=== PATIENT | female | born 1950 | race African-American/Black ===

== ENCOUNTER 2019-08-25 17:23 | Inpatient (IN) ==
[2019-08-25] MEDS ORDERED: ZOFRAN IV ONE (17:54)
[2019-08-25] MEDS ORDERED: MORPHINE IV ONE (17:54)
--- NOTE | 2019-08-25 17:59 | PROVIDER DOCUMENTATION ---
HPI-Abdominal Pain/GI Problem - General Chief Complaint: Abdominal Pain Stated Complaint: COLON PAIN Time Seen by Provider: 08/25/19 17:45 Source: patient Allergies/Adverse Reactions: Patient Allergies Allergy/AdvReac Type Severity Reaction Status Date / Time No Known Allergies Allergy Verified 11/10/12 15:07 Home Medications: Home Medication List Medication Instructions Recorded Confirmed Last Taken Type Amlodipine [Norvasc] 10 mg PO DAILY 11/10/12 11/10/12 11/10/12 08:00 History Aspirin 81 mg PO DAILY 11/10/12 11/10/12 11/10/12 08:00 History Estradiol 2 mg PO QHS 11/10/12 11/10/12 11/09/12 21:00 History Levothyroxine [Synthroid] 75 microgm PO DAILY 11/10/12 11/10/12 11/10/12 08:00 History Lisinopril [Zestril] 40 mg PO DAILY 11/10/12 11/10/12 11/09/12 21:00 History Oxybutynin [Ditropan] 5 mg PO BID 11/10/12 11/10/12 11/10/12 08:00 History PRAVAstatin [Pravachol] 40 mg PO QHS 11/10/12 11/10/12 11/09/12 21:00 History - History of Present Illness-ABD Nature of Presenting Problems: 69 YOF PRESENTS WITH NAUSEA, LOWER ABDOMINAL PAIN THAT BEGAN YESTERDAY. SHE REPORTS THE PAIN IS SEVERE. LAST BM WAS YESTERDAY. DENIES FEVER, CHILLS, VOMITING, CP, SOB. Abdominal Pain Onset Location: reports: RLQ, LLQ Pain Radiation: reports: no radiation Quality of Pain: reports: aching Severity in ED: reports: severe Onset/Duration: reports: last night Timing: reports: still present Activities at Onset: reports: none Exposure to sick contacts?: No Modifying Factors: improves with: nothing Associated Symptoms: reports: nausea Last BM: 24 hours ago Dark Stools Present?: reports: none noticed Rectal Bleeding: reports: none Rectal Pain: reports: none Emesis Description: reports: none Bruising or Bleeding Gums?: No Similar Symptoms Previously?: No Recently seen or treated by another doctor?: No Review of Systems - Adult - REVIEW OF SYSTEMS - ADULT Constitutional: reports: no symptoms reported. denies: see HPI, chills, fever, fatique, night sweats, weight gain, weight loss, other Eyes: reports: no symptoms reported. denies: see HPI, discharge, dry eyes, decreased vision, blurred vision, double vision, eye pain, redness, other Ears, Nose, Mouth & Throat: reports: no symptoms reported. denies: see HPI, ear discharge, ear pain, hearing loss, tinnitus, epistaxis, sinus problem, nose pain, loose teeth, mouth/dental pain, mouth swelling, hoarseness, throat pain, throat swelling, other Cardiovascular: reports: no symptoms reported. denies: see HPI, chest pain, edema, heart murmur, irregular heart rate, orthopnea, palpitations, poor circulation, PND, syncope, other Respiratory: reports: no symptoms reported. denies: see HPI, chronic cough, cough, dyspnea on exertion, excessive sputum production, hemoptysis, pleurisy, shortness of breath, wheezing, other Gastrointestinal: reports: see HPI, abdominal pain, nausea. denies: no symptoms reported, hematemesis, constipation, diarrhea, difficulty swallowing, frequent heartburn, poor appetite, rectal bleeding, vomiting, other Genitourinary: reports: no symptoms reported. denies: see HPI, dysuria, discharge, frequency, flank pain, frequent UTI's, hematuria, hesitency, incontinence, urinary retention, urgency, other Musculoskeletal: reports: no symptoms reported Integumentary: reports: no symptoms reported. denies: see HPI, hives, hair loss, itching, mole changes, nail changes, rash, skin sores/ulcer, skin thickening, other Neurological: reports: no symptoms reported. denies: see HPI, ataxia, dizziness/vertigo, headache/migraines, loss of balance, numbness, paresthesia, seizure, slurred speech, syncope, tremors, other Psychiatric: reports: no symptoms reported. denies: see HPI, anxiety, anti- depressant use, alcohol/drug dependence, depression, emotional problems, insomnia, panic attacks, suicidal thoughts, other Endocrine: reports: no symptoms reported. denies: see HPI, change in skin pigment, excessive sweating, goiter, cold intolerance, heat intolerance, increased hunger, increased thirst, polyuria, other Hematologic/Lymphatic: reports: no symptoms reported. denies: see HPI, blood clots, easy bruising, low blood count, lymphedema, prolonged bleeding, swollen lymph nodes, transfusions, other Allergic/Immunologic: reports: no symptoms reported. denies: see HPI, allergic reactions, allergic rhinitis, asthma, eczema, food allergy, frequent infections, hay fever, hives, positive PPD, urticaria, other Past History - Adult - PAST MEDICAL HISTORY-ADULT Review of Records: reports: Nursing Assessment Review, Social history reviewed & non-contributory. Physical Exam-General - PHYSICAL EXAM-ADULT Initial Vital Signs Reviewed: Yes - CONSTITUTIONAL General Appearance: alert, no apparent distress. negative: appears well (KATHY EARS IN PAIN) - EYES Eyes: PERRL/EOMI, pink conjunctivae - HEAD, EARS, NOSE, MOUTH & THROAT HENMT: normocephalic/atraumatic, moist mucous membranes, normal ENT inspection - NECK Neck: non-tender, full range of motion, supple - RESPIRATORY Respiratory: chest non-tender, lungs clear, normal breath sounds, no pleuratic chest pain, no respiratory distress, no accessory muscle use - CARDIOVASCULAR Cardiovascular: normal peripheral pulses, regular rate, rhythm, no edema, no gallop, no JVD, no murmur - GASTROINTESTINAL (ABDOMEN) Abdominal Exam: normal bowel sounds, soft, tenderness - LYMPHATIC Lymphatic: no adenopathy - MUSCULOSKELETAL Back Exam: normal inspection, no CVA tenderness, no vertebral tenderness Extremity: normal range of motion, non-tender, normal gait Peripheral Pulses: radial (R): 2+, radial (L): 2+ - SKIN Integumentary: normal color, normal turgor, warm/dry - NEUROLOGIC Neurologic: grossly normal - PSYCHIATRIC Psych/Mental Status: normal mood/affect, oriented x 3 Progress - PLAN OF CARE/RESULTS Progress/Plan/Lab Results: Vital Signs - 8 hr 08/25/19 17:31 Temperature 98.2 F Pulse Rate 101 H Respiratory Rate 20 Blood Pressure 179/80 O2 Sat by Pulse Oximetry 95 Orders Category Date Time Status Saline Loc NOW Care 08/25/19 17:[address] ABD/PELVIS W/IV CONT ONLY [CT] Stat Exams 08/25/19 17:53 Ordered AMYLASE [CHEM] Stat Lab 08/25/19 17:35 Ordered CBC WITH DIFF [HEME] Stat Lab 08/25/19 17:35 Ordered COMPREHENSIVE METABOLIC PANEL [CHEM] Stat Lab 08/25/19 17:35 Uncollected LIPASE [CHEM] Stat Lab 08/25/19 17:35 Uncollected URINALYSIS W/POSS RFLX CULT [URINALYSIS] Stat Lab 08/25/19 17:35 Uncollected Morphine Med 08/25/19 17:54 Once 4 mg IV NOW ONE Ondansetron [Zofran] Med 08/25/19 17:54 Once 4 mg IV NOW ONE Result Diagrams: 08/25/19 18:05 08/25/19 18:05 - CT/MRI 1 CT Study: Abdomen, Pelvis Impression: See EMR Report (EXAM: CT ABD/PELVIS W/IV CONT ONLY HISTORY: abd pain TECHNIQUE: CT abdomen and pelvis with intravenous contrast COMPARISON: 08/18/2018 FINDINGS: There is fatty infiltration of the liver. No splenomegaly. No calcified gallstones or adjacent inflammation. Normal pancreas, adrenal glands, and kidneys. No aortic aneurysm. Moderate atherosclerosis. There are multiple distal colonic diverticula and there is thickening to the wall of the distal descending colon with adjacent inflammatory changes. No free air or abscess. The urinary bladder is distended and is normal. The uterus has been removed. No pelvic mass. IMPRESSION: 1.Descending colon diverticulitis 2.Fatty infiltration of the liver This exam was performed using automated exposure control, adjustment of mA or kV according to patient size, and/or use of iterative reconstruction technique. Electronically signed by Taurus Moura 08/25/2019 8:02 PM 08/25/192001 Interpreting Physician: Taurus Moura MD Dictated Date/Time: 08/25/191999 cc: Mary Black; Kim Hancock MD) - CONSULTS/PCP/HOSPITALIST Notification #1 *Consult/PCP/Hospitalist*: DR GRIDER Time Discussed: 21:02 Reason/Comments: GIVE ZOSYN NOW Consult Disposition: Admit Departure - Departure Date of Disposition Decision: 08/25/19 Time of Disposition Decision: 21:02 DIAGNOSIS: Diverticulitis Disposition: ADMITTED INPATIENT 09 Certified Medical Emergency: Emergent Condition: Stable Referrals and Follow-Ups: Kim Hancock MD [Primary Care Provider] - - Critical Care Note This patient required my direct & personal management of CC.: No Attestation - Physician/ KATHY Attestation Patient care was provided by Advanced Practice Provider:: Yes Advanced Practice Provider:: Mary Black Advanced Practice Provider documentation review:: The Mid-level provider documentation, treatment plan and medical decision making was reviewed by the physician who agrees with all treatment and medical decision making by the MLP. The physician spent face to face time with patient:: No Advanced Practice Provider documentation review:: Supervising physician onsite and consulted in the evaluation and care of this patient. The physician did not have a face to face encounter with the patient.
[2019-08-25 18:15] LABS: URINE SOURCE CLEAN CATCH
[2019-08-25 18:18] LABS: BILIRUBIN URINE NEGATIVE (NEGATIVE); BLOOD URINE NEGATIVE (NEGATIVE); COLOR YELLOW; GLUCOSE URINE NEGATIVE (NEGATIVE); KETONE URINE TRACE mg/dL (NEGATIVE); LEUKOCYTES URINE NEGATIVE (NEGATIVE); NITRITE URINE NEGATIVE (NEGATIVE); PROTEIN URINE TRACE mg/dL (NEGATIVE); SP GRAVITY URINE 1.018; TURBIDITY URINE CLEAR (CLEAR); UROBILINOGEN URINE NORMAL (NORMAL)
[2019-08-25 18:20] LABS: BASO# 0.02 X1000 (0.0-0.2); BASO% 0.1 % (0.0-0.8); EOS# 0.15 X1000 (0.0-0.7); HEMATOCRIT 38.8 % (37.0-47.0); HEMOGLOBIN 11.8 g/dL (12.0-16.0); IMM GRAN# 0.03 X1000 (0.0-0.04); IMM GRAN% 0.2 % (0.0-0.5); LYMPH# 2.92 X1000 (1.2-3.4); LYMPH% 20.3 % (20.5-51.1); MCH 26.5 PG (27-31); MCHC 30.4 g/dL (33-37); MONO# 0.78 X1000 (0.11-0.59); MONO% 5.4 % (1.7-9.3); MPV 10.1 FL (7.4-10.4); NEUT# 10.47 X1000 (1.4-6.5); PLT 298 X1000 (130-400); RBC 4.46 XMIL (4.2-5.4); RDW 13.9 % (11.5-14.5); WBC 14.37 X1000 (4.8-10.8)
[2019-08-25 18:21] LABS: UR EPITHELIAL CELLS <10 /HPF (<10); URINE BACTERIA NEGATIVE /HPF; URINE RBC <10 /HPF (<10); URINE WBC <10 /HPF (<10)
[2019-08-25 19:19] LABS: AGAP 17; ALBUMIN 4.9 g/dL (3.5-5.0); ALKALINE PHOSPHATASE 82 U/L (32-104); BUN 20 mg/dL (8-22); CALCIUM 9.6 mg/dL (8.8-10.2); CHLORIDE 100 mmol/L (98-107); COSMO 281; CREATININE 0.8 mg/dL (0.5-0.9); ESTIMATED GFR > 60; GLUCOSE 84 mg/dL (70-104); GOT 17 U/L (10-30); GPT 14 U/L (10-36); LIPASE 35 U/L (13-60); POTASSIUM 3.1 mmol/L (3.5-5.1); SODIUM 140 mmol/L (136-145); TCO2 23 mmol/L (25-35); TOTAL PROTEIN 8.7 g/dL (6.3-8.3)
[2019-08-25] MEDS ORDERED: KLOR-CON PO ONE (19:21)
--- NOTE | 2019-08-25 20:04 | Diag Imaging Result Doc PS360 ---
EXAM: CT ABD/PELVIS W/IV CONT ONLY HISTORY: abd pain TECHNIQUE: CT abdomen and pelvis with intravenous contrast COMPARISON: 08/18/2018 FINDINGS: There is fatty infiltration of the liver. No splenomegaly. No calcified gallstones or adjacent inflammation. Normal pancreas, adrenal glands, and kidneys. No aortic aneurysm. Moderate atherosclerosis. There are multiple distal colonic diverticula and there is thickening to the wall of the distal descending colon with adjacent inflammatory changes. No free air or abscess. The urinary bladder is distended and is normal. The uterus has been removed. No pelvic mass. IMPRESSION: 1.Descending colon diverticulitis 2.Fatty infiltration of the liver This exam was performed using automated exposure control, adjustment of mA or kV according to patient size, and/or use of iterative reconstruction technique. Electronically signed by Taurus Moura 08/25/2019 8:02 PM
[2019-08-25] MEDS ORDERED: FLAGYL 500 MG/NS 500 MG/100 ML IVPB IV ONE (20:22)
[2019-08-25] MEDS ORDERED: CIPRO 400 MG/D5W 400 MG/200 ML IVPB IV ONE (20:22)
[2019-08-25] MEDS ORDERED: NS 1,000 ML IV ONE (20:26)
[2019-08-25] MEDS ORDERED: FLAGYL 500 MG/NS 500 MG/100 ML IVPB ONE (22:35)
[2019-08-26] MEDS ORDERED: ZOFRAN IV PRN (00:30)
[2019-08-26] MEDS: ZOSYN 3.375 GM in NS 50 ML IV SCH ×4 (01:07→18:58)
--- NOTE | 2019-08-26 03:29 | HISTORY AND PHYSICAL ---
PRIMARY CARE PHYSICIAN: Dr. Hancock. CHIEF COMPLAINT: Abdominal pain x2 weeks. HISTORY OF PRESENTING ILLNESS: A 69-year-old female with a history of diabetes mellitus type 2, hypertension, hyperlipidemia, and hypothyroidism had presented to the emergency department with 2 weeks history of having abdominal pain. She described it as cramping and states that she was nauseated. The patient states that the pain was worsening. Subsequently, she had come to the emergency department. In the ED, she was evaluated. She had imaging done which did show diverticulitis. Initially she was seen at [facility] and due to lack of beds there she was transferred to [facility] for further treatment. At the time of my examination, patient denied any headache, fever, chills, chest pain, shortness of breath or any weight changes, but complained of abdominal pain. PAST MEDICAL HISTORY: Include diabetes mellitus type 2, hypertension, hyperlipidemia, hypothyroidism. PAST SURGICAL HISTORY: Thyroidectomy, hysterectomy, breast cyst removal. ALLERGIES: No known drug allergies. CURRENT MEDICATIONS: Metformin 1000 mg p.o. daily, amlodipine 10 mg p.o. daily, aspirin 81 mg p.o. daily, atorvastatin 20 mg p.o. daily, levothyroxine 75 mcg p.o. daily, Telmisartan 80 mg p.o. daily. SOCIAL HISTORY: No history of smoking, alcohol or illicit drug use. FAMILY HISTORY: Positive for coronary artery disease in mother and father. REVIEW OF SYSTEMS: Fourteen point review of systems as listed in HPI. Other systems negative. PHYSICAL EXAMINATION: GENERAL: Cooperative, friendly female. She is resting more comfortably now. VITAL SIGNS: Temperature 98.6 degrees, pulse 88, respiration 18, blood pressure 146/58. HEENT: Atraumatic, normocephalic. Extraocular movements intact. PERRLA. NECK: No masses. CHEST: Clear to auscultation. CARDIOVASCULAR: Regular rate and rhythm. S1, S2. ABDOMEN: Soft. Diffuse tenderness. EXTREMITIES: No edema. NEUROLOGIC: She is awake, alert, oriented x3. GENITOURINARY: No bladder distention. SKIN: Warm. LABORATORIES AND STUDIES: WBCs 14.37, hemoglobin 11.8, hematocrit 38.8, platelets 298,000. Sodium 140, potassium 3.1, chloride 100, CO2 is 23, BUN is 20, creatinine 0.8, glucose is 84. Abdominal CT shows descending colon diverticulitis. ASSESSMENT: A 69-year-old female with a history of diabetes mellitus type 2, hypertension, hyperlipidemia, and hypothyroidism that presented to the emergency department with 2 weeks history of worsening abdominal pain. She was initially evaluated in [facility] and had imaging done which did show diverticulitis. The patient was transferred to [facility] due to lack of beds availability there. 1. Acute diverticulitis. 2. Diabetes mellitus type 2. 3. Hypertension. 4. Hyperlipidemia. PLAN: 1. We will admit patient to medical floor with telemetry. 2. We will start patient on IV antibiotics. 3. Give patient antiemetics, pain control as needed. 4. We will continue with gentle hydration. 5. We will monitor blood glucose and put patient on sliding scale insulin regimen. 6. We will monitor blood pressure. Resume antihypertensive agent. 7. Restart other home medications. 8. We will put patient on DVT prophylaxis with SCD. 9. We will continue to follow, reassess and make further recommendation based on patient's clinical course. cc: Rashi hPillips MD
[2019-08-26] MEDS: NS 1,000 ML IV SCH ×2 (05:52→14:41)
[2019-08-26] MEDS: SYNTHROID PO SCH (06:36)
[2019-08-26] MEDS ORDERED: D50W SYRINGE IV ONE (06:46)
[2019-08-26] MEDS: HUMULIN R SUBQ SCH ×3 (06:58→16:44)
[2019-08-26] MEDS: NORVASC PO SCH (09:21)
[2019-08-26] MEDS: LIPITOR PO SCH (09:21)
[2019-08-26] MEDS: VITAMIN D PO SCH (09:21)
[2019-08-26] MEDS: ASPIRIN PO SCH (09:22)
[2019-08-26] MEDS: PATIENT'S OWN MED PO SCH (09:22)
--- NOTE | 2019-08-26 13:26 | PROGRESS NOTE ---
DATE: 08/26/2019 SUBJECTIVE: This patient is still complaining of abdominal pain. She is not having nausea or vomiting. She is hungry so I will put this patient on a liquid diet to start with. Her is at the bedside. She has been having this kind of problem before and she has been seen by her finance mgr, Dr. Herrera. Also, she has been complaining of some dysphagia that also has been monitored by Dr. Herrera. I do not think we need to do anything urgent at this moment but just keep an eye on that and treat the infection. She came in with diverticulitis. OBJECTIVE: Vital Signs: Temperature 97.8 degrees, pulse 61, respiratory rate 16, blood pressure 122/53, oxygen saturation 99 on room air. HEENT: Head normocephalic. No trauma. PERRLA. Neck: Supple. No JVD. No masses. Central trachea. Chest: Clear to auscultation. No wheezing. No rales. Abdomen: Soft. Generalized tenderness to palpation, especially in the lower abdomen and left lower quadrant. Extremities: No edema, no clubbing, no cyanosis. Neurological Examination: The patient is alert and oriented x3. No focal deficits. Laboratory: WBC 14.3, hemoglobin 11.8, hematocrit 38.8, platelets 298,000. Sodium 140, potassium 3.1, chloride 100, bicarbonate 23, BUN 20, creatinine 0.8, glucose 84, calcium 9.6. AST 17, ALT 18, alkaline phosphatase 82. No lab work done today. This lab work is from yesterday. ASSESSMENT AND PLAN: 1. Acute diverticulitis. We did a CT scan of the abdomen that showed descending colon diverticulitis. She has been placed on Zosyn and fluids. I will continue with that and I will monitor this patient closely. 2. Type 2 diabetes. I will hold for now her metformin and I will put this patient on sliding scale insulin and pattern of blood sugar. She had an episode of hypoglycemia today but asymptomatic. She is now on a liquid diet. 3. Hypertension. Continue home medications. 4. Hyperlipidemia. Continue with atorvastatin home dose. 5. Hypothyroidism. Continue with Synthroid. 6. Mild dysphagia. As per the patient, this has been intermittent and Dr. Herrera apparently has been taking care of this as an outpatient. For now, I will probably just monitor this patient and treat the infection first. 7. The patient seems to be stable. She is still complaining of pain. We will continue with antibiotics. I have requested new lab work for tomorrow. cc: Leonard Singh MD
[2019-08-26] MEDS: MICARDIS PO SCH (15:25)
[2019-08-27] MEDS: NS 1,000 ML IV SCH ×3 (00:12→13:53)
[2019-08-27] MEDS: HUMULIN R SUBQ SCH ×5 (00:13→22:05)
[2019-08-27] MEDS: ZOSYN 3.375 GM in NS 50 ML IV SCH ×4 (01:08→22:04)
[2019-08-27] MEDS ORDERED: PNEUMOVAX 23 IM ONE (04:56)
[2019-08-27] MEDS: SYNTHROID PO SCH ×2 (05:49→06:19)
[2019-08-27 07:04] LABS: BASO# 0.02 X1000 (0.0-0.2); BASO% 0.3 % (0.0-0.8); EOS# 0.22 X1000 (0.0-0.7); EOS% 3.1 % (0.0-10.0); HEMATOCRIT 36.2 % (37.0-47.0); HEMOGLOBIN 11.1 g/dL (12.0-16.0); LYMPH# 1.97 X1000 (1.2-3.4); LYMPH% 28.1 % (20.5-51.1); MCH 27.1 PG (27-31); MCHC 30.7 g/dL (33-37); MCV 88.3 FL (81-99); MONO# 0.43 X1000 (0.11-0.59); MONO% 6.1 % (1.7-9.3); MPV 10.5 FL (7.4-10.4); NEUT# 4.38 X1000 (1.4-6.5); NEUT% 62.4 % (42.2-75.2); PLT 276 X1000 (130-400); RDW 13.9 % (11.5-14.5); WBC 7.02 X1000 (4.8-10.8)
[2019-08-27 07:27] LABS: AGAP 7; BUN 5 mg/dL (8-22); CALCIUM 9.4 mg/dL (8.8-10.2); CHLORIDE 106 mmol/L (98-107); COSMO 282; CREATININE 0.8 mg/dL (0.5-0.9); ESTIMATED GFR > 60; GLUCOSE 98 mg/dL (70-104); POTASSIUM 3.2 mmol/L (3.5-5.1); SODIUM 143 mmol/L (136-145); TCO2 30 mmol/L (25-35)
[2019-08-27] MEDS: ASPIRIN PO SCH (09:20)
[2019-08-27] MEDS: VITAMIN D PO SCH (09:20)
[2019-08-27] MEDS: NORVASC PO SCH (09:20)
[2019-08-27] MEDS: LIPITOR PO SCH (09:20)
[2019-08-27] MEDS: MICARDIS PO SCH (09:20)
[2019-08-27] MEDS: PATIENT'S OWN MED PO SCH (09:21)
[2019-08-27] MEDS ORDERED: MAGNESIUM SULFATE 2 GM/S.W.I. 2 GM/50 ML IVPB IV ONE (13:40)
--- NOTE | 2019-08-27 14:44 | PROGRESS NOTE ---
DATE: 08/27/2019 SUBJECTIVE: Today, Ms. Levy refers to be doing well. Denies any new complaints. Still has some low abdominal discomfort, and has not had any bowel movement. OBJECTIVE: Vital signs: Blood pressure is 119/53, pulse of 67, respiration is 18, temperature is 98.0 degrees. General exam: Ms. Levy is a 69-year-old female. She is in bed in no distress. HEENT: Mucosa is pink and moist. Anicteric. Acyanotic. Neck: Supple. Chest: Good air entry bilaterally. There were no crepitations, no rhonchi. Cardiovascular: Regular rate and rhythm. No murmurs, no rubs, no gallops. GI/Abdomen: Soft, minimally tender in the lower abdomen. There is an old infraumbilical site surgical scar. Central nervous system: Patient is awake, alert, and oriented. LABORATORY DATA: WBC is down to 7.2, hemoglobin is 11.0, platelet count of 273. Chemistry is also reviewed: Potassium is 3.2. Rest of chemistry is unremarkable. CURRENT MEDICATIONS: Have all been reviewed. She is on Zosyn as an antimicrobial. ASSESSMENT: 1. Acute diverticulitis. 2. Diabetes mellitus. 3. Hypertension. 4. Dyslipidemia. 5. History of esophageal stricture, status post dilatation in the past. 6. Constipation. We will start the patient on some bowel regimen. 7. Hypokalemia. We will replace. DISPOSITION: For today, we are going to advance Ms Levy's diet to full liquid diet, advance it to GI soft diet later, get the bowels to move. Hopefully discharge her tomorrow if she remains stable and she is tolerating her diet. cc: Christian Jeffery MD
[2019-08-27] MEDS: MIRALAX PO SCH (15:07)
[2019-08-27] MEDS: POTASSIUM CHLORIDE 20 MEQ/SWI 20 MEQ/100 ML IVPB IV SCH ×2 (15:09→18:25)
[2019-08-28] MEDS: ZOSYN 3.375 GM in NS 50 ML IV SCH ×2 (02:57→09:34)
[2019-08-28] MEDS: NS 1,000 ML IV SCH (02:57)
[2019-08-28] MEDS: SYNTHROID PO SCH (06:33)
[2019-08-28] MEDS: HUMULIN R SUBQ SCH ×2 (07:46→11:33)
[2019-08-28] MEDS: VITAMIN D PO SCH (09:33)
[2019-08-28] MEDS: LIPITOR PO SCH (09:33)
[2019-08-28] MEDS: MICARDIS PO SCH (09:33)
[2019-08-28] MEDS: PATIENT'S OWN MED PO SCH (09:34)
[2019-08-28] MEDS: ASPIRIN PO SCH (09:34)
[2019-08-28] MEDS: MIRALAX PO SCH (09:34)
[2019-08-28] MEDS: NORVASC PO SCH (09:34)
[2019-08-28 11:30] VITALS: BP 150/67
--- NOTE | 2019-08-29 18:05 | DISCHARGE SUMMARY ---
ADMISSION DATE: 08/25/2019 DISCHARGE DATE: 08/28/2019 DISPOSITION: Home. FOLLOWUP: 1. Dr. Kim Hancock. 2. Dr. Herrera. CONSULTATION DURING THIS ADMISSION: None. IMAGING STUDIES OF SIGNIFICANCE: A CT scan of the abdomen and pelvis showed a descending colon diverticulitis, fatty infiltration of the liver. ADMISSION DIAGNOSES: 1. Acute diverticulitis. 2. Diabetes mellitus type 2. 3. Hypertension. 4. Dyslipidemia. DISCHARGE DIAGNOSES: 1. Acute intractable abdominal pain secondary to diverticulitis. 2. Diabetes mellitus. 3. Hypertension. 4. Dyslipidemia. 5. History of esophageal stricture, status post dilation in the past by Dr. Herrera. 6. Constipation. 7. Hypokalemia, replaced. DISCHARGE MEDICATIONS: 1. Levothyroxine 75 mcg p.o. daily. 2. Aspirin 81 mg p.o. daily. 3. Amlodipine 10 mg p.o. daily. 4. Atorvastatin 20 mg p.o. daily. 5. Vitamin D 1000 units p.o. daily. 6. Metformin 1 g p.o. daily. 7. 80 p.o. daily. 8. Biotin 800 mcg p.o. daily. 9. Bentyl 10 mg p.o. with each meal. 10. Ciprofloxacin 500 b.i.d. 11. Culturelle 1 tablet b.i.d. 12. Metronidazole 250 p.o. daily. 13. MiraLAX 17 g p.o. daily. PRESENTING COMPLAINT: Abdominal pain. HISTORY OF PRESENTING COMPLAINT: Ms. Levy is a 69-year-old female, with a history of diabetes, hypertension, dyslipidemia, hypothyroidism, and diverticular disease, who came to the emergency department because of abdominal pain for the past 2 weeks. Upon presentation, she was thoroughly evaluated, including a CT scan of the abdomen and pelvis, which did reveal a descending colon diverticulitis. Ms. Levy was subsequently admitted because of intractable abdominal pain due to acute diverticulitis for inpatient management. HOSPITAL COURSE: Ms. Levy was admitted and started on broad-spectrum IV antibiotics, IV pain medication, hydration, and was kept n.p.o. During the hospital course, she did improve. She was subsequently started on some clear liquids and advanced to GI soft diet. Her laboratory data did reveal leukocytosis on admission, which improved during the hospital course. She was able to tolerate her meals and she did have a regular bowel movement during the hospital course. This morning, she refers to feel a whole lot better. She responded very well to the treatment, so there was no need for subspecialty consult. We think she is fairly stable for discharge since she is tolerating p.o. She is going to be discharged on p.o. Cipro and metronidazole for a total of 10 days, after which she has been advised to follow up with her primary hand alterations seamstress, Dr. Herrera, for regular care. Ms. Levy has also been given resources about diet to prevent recurrence of diverticular complications. All the discharge instructions have been discussed with her and she voiced understanding. TIME SPENT FOR DISCHARGE: 38 minutes. cc: MD Kim Cool MD Thomas P. Short, MD MTDD
== END 2019-08-28 13:28 | disposition home or self-care (01) | DRG 392 ==
LOC: P.ED 17:23 → 4N 22:37 → SUATTDRO 22:37
PROVIDERS: ATTEND Internal Medicine